=== PATIENT | male | born 1980 | race Caucasian/White ===

== ENCOUNTER → 2017-04-18 | Outpatient (CLI) | payer BC ==
[2012-12-20 10:05] VITALS: BP 175/102
[~2017-04-18] MED LIST: NO HOME MEDICATIONS
== END ==
LOC: LAB 16:23
DX: E29.1 Testicular hypofunction (principal)

== ENCOUNTER → 2017-04-21 | Outpatient (CLI) | payer BC ==
[2012-12-20 10:05] VITALS: BP 175/102
== END ==
LOC: LAB 09:49
DX: E29.1 Testicular hypofunction (principal)

== ENCOUNTER → 2017-09-09 | Outpatient (CLI) | payer BC ==
[2012-12-20 10:05] VITALS: BP 175/102
[2017-09-09 09:48] LABS: EOS # 0.1 (0.04-0.40); EOS % 1.5 % (0.0-4.0); HEMATOCRIT 47.6 % (42.0-52.0); LYMPH# 1.5 (1.50-4.00); MEAN CELL VOLUME 86 fl (78-100); MEAN CORPUSCULAR HEMOGLOBIN 29 pg (27-31); MEAN CORPUSCULAR HGB CONC 34 g/dL (33-37); MEAN PLATELET VOLUME 10.1 fl (7.4-10.4); MONO # 0.5 (0.20-0.80); NEU # 3.3 (1.40-6.50); PLATELET COUNT 216 K/mm3 (130-400); RED BLOOD COUNT 5.55 M/mm3 (4.20-5.60); RED CELL DISTRIBUTION WIDTH 14.2 % (11.5-14.5); WHITE BLOOD COUNT 5.4 K/mm3 (4.8-10.8)
[2017-09-09 09:58] LABS: ALBUMIN 3.9 g/dL (3.5-5.0); POTASSIUM 4.6 mmol/L (3.6-5.0); TOTAL BILIRUBIN 0.9 mg/dL (0.2-1.3)
[2017-09-09 10:29] LABS: BUN/CREATININE RATIO 15.2 (6.0-26.0)
== END ==
LOC: LAB 09:29
PROVIDERS: Nurse Practitioner Family
DX: Z00.00 Encounter for general adult medical examination without abnormal findings (principal); E78.2 Mixed hyperlipidemia; E29.1 Testicular hypofunction; I10 Essential (primary) hypertension

== ENCOUNTER → 2017-11-05 | Outpatient (CLI) | payer BC ==
[2012-12-20 10:05] VITALS: BP 175/102
== END ==
LOC: LAB 14:39
DX: E29.1 Testicular hypofunction (principal)

== ENCOUNTER → 2017-11-26 | Outpatient (CLI) | payer BC ==
[2012-12-20 10:05] VITALS: BP 175/102
== END ==
LOC: LAB 16:24
DX: K63.5 Polyp of colon (principal)

== ENCOUNTER → 2018-03-22 | Outpatient (CLI) | payer BC ==
[2012-12-20 10:05] VITALS: BP 175/102
== END ==
LOC: LAB 06:37
DX: E29.1 Testicular hypofunction (principal)

== ENCOUNTER → 2018-04-04 | Outpatient (CLI) | payer BC ==
[2012-12-20 10:05] VITALS: BP 175/102
== END ==
LOC: LAB 06:16
DX: E29.1 Testicular hypofunction (principal)